=== PATIENT | female | born 1955 ===

== ENCOUNTER 2023-04-06 11:03 | Outpatient (RCR) | payer MEDICARE, BC, SELFPAY | END 2023-04-06 23:59 | disposition home or self-care (01) | LOC: RPT 11:03 | PROVIDERS: ATTENDING PHYSICIAN Anesthesiology Pain Medicine; PRIMARYCARE PHYSICIAN Family Medicine | DX: R10.2 Pelvic and perineal pain (principal); M62.89 Other specified disorders of muscle; Z73.6 Limitation of activities due to disability; M62.81 Muscle weakness (generalized) | CPT/HCPCS: 97110; 97530 ==

== ENCOUNTER 2023-05-01 15:14 | Outpatient (RCR) | payer MEDICARE, BC, SELFPAY | END 2023-05-01 23:59 | disposition home or self-care (01) | LOC: RPT 15:14 | PROVIDERS: ATTENDING PHYSICIAN Anesthesiology Pain Medicine; PRIMARYCARE PHYSICIAN Family Medicine | DX: R10.2 Pelvic and perineal pain (principal); M62.89 Other specified disorders of muscle; Z73.6 Limitation of activities due to disability; M62.81 Muscle weakness (generalized); M54.50 Low back pain, unspecified | CPT/HCPCS: 97110; 97530 ==

== ENCOUNTER 2023-06-02 11:39 | Outpatient (RCR) | payer MEDICARE, BC, SELFPAY | END 2023-06-02 23:59 | disposition home or self-care (01) | LOC: RPT 11:39 | PROVIDERS: ATTENDING PHYSICIAN Anesthesiology Pain Medicine; PRIMARYCARE PHYSICIAN Family Medicine | DX: R10.2 Pelvic and perineal pain (principal); M62.89 Other specified disorders of muscle; Z73.6 Limitation of activities due to disability; M62.81 Muscle weakness (generalized) | CPT/HCPCS: 97530 ==

== ENCOUNTER 2023-07-13 11:48 | Outpatient (RCR) | payer MEDICARE, BC, SELFPAY | END 2023-07-13 23:59 | disposition home or self-care (01) | LOC: RPT 11:48 | PROVIDERS: ATTENDING PHYSICIAN Anesthesiology Pain Medicine; PRIMARYCARE PHYSICIAN Family Medicine | DX: R10.2 Pelvic and perineal pain (principal); M62.89 Other specified disorders of muscle; M62.81 Muscle weakness (generalized) | CPT/HCPCS: 97530 ==

== ENCOUNTER 2023-07-27 11:56 | Outpatient (RCR) | payer MEDICARE, BC, SELFPAY | END 2023-07-27 23:59 | disposition home or self-care (01) | LOC: RPT 11:56 | PROVIDERS: ATTENDING PHYSICIAN Anesthesiology Pain Medicine; PRIMARYCARE PHYSICIAN Family Medicine | DX: R10.2 Pelvic and perineal pain (principal); M62.89 Other specified disorders of muscle; Z73.6 Limitation of activities due to disability; M62.81 Muscle weakness (generalized) | CPT/HCPCS: 97530 ==